=== PATIENT | male | born 1995 | race American Indian/Alaskan Native ===

== ENCOUNTER 2020-11-27 11:00 | Emergency (ER) | payer OTHER ==
[2020-11-27] MEDS ORDERED: ONDANSETRON 4 MG ODT TAB PO ONE (12:18)
[2020-11-27] MEDS ORDERED: FAMOTIDINE 20 MG TAB PO ONE (12:18)
--- NOTE | 2020-11-27 12:19 | Emergency Department Report ---
<GARRICK AGUILERA - Last Filed: 11/27/20 14:02> ED Abdominal Pain HPI - General Chief Complaint: Abdominal Pain Stated Complaint: PRESSURE IN CHEST/PAIN IN LEFT ARM Time Seen by Provider: 11/27/20 11:55 Source: patient Mode of arrival: Ambulatory Limitations: No Limitations - History of Present Illness Initial Comments: 25-year-old male presents to the ER today with complaints of upper abdominal pain. Patient states that the pain started 2 weeks ago. He states that it was intermittent in nature but got worse yesterday. He states that the pain radiates into his bilateral flank area and sometimes into his chest. He desc ribes as a burning/pressure type pain. He states that today he felt nauseous and lightheaded when the pain started. He states that the pain seems to be worse when he eats. He denies any associated diarrhea, vomiting, UTI symptoms, shortness of breath, cough or any additional symptoms. He does admit that he drinks alcohol every other day. He states that his alcohol intake ranges from 1-2 beers to 1 to 2 glasses of liquor when he does drink. He states that he stopped drinking about 2 days ago when his pain was starting to get worse. He denies any past history of abdominal surgeries. MD Complaint: abdominal pain -: week(s) (2) - Related Data Previous Rx's Medication Instructions Recorded Last Taken Type Docusate Sodium [Colace] 100 mg PO BID PRN #60 capsule 11/27/20 Unknown Rx Famotidine [Pepcid] 40 mg PO QHS #30 tablet 11/27/20 Unknown Rx Ondansetron [Zofran Odt] 4 mg PO Q8HR PRN #12 tab.rapdis 11/27/20 Unknown Rx Allergies Allergy/AdvReac Type Severity Reaction Status Date / Time No Known Allergies Allergy Unverified 11/27/20 11:09 ED Review of Systems Comment: All other systems reviewed and negative Constitutional: denies: chills, fever Eyes: denies: eye pain, eye discharge, vision change ENT: denies: ear pain, throat pain Respiratory: denies: cough, shortness of breath, SOB with exertion, SOB at rest, wheezing Cardiovascular: denies: chest pain, palpitations, dyspnea on exertion, edema, syncope, paroxysmal nocturnal dyspnea Gastrointestinal: abdominal pain, nausea. denies: vomiting, diarrhea, constipation, hematemesis, melena, hematochezia Genitourinary: denies: urgency, dysuria, frequency, hematuria, discharge, testicular pain, testicular mass Musculoskeletal: denies: back pain, joint swelling, arthralgia Skin: denies: rash, lesions, change in color, change in hair/nails, pruritus Neurological: denies: headache, weakness, numbness, paresthesias, confusion, abnormal gait, vertigo Psychiatric: as per HPI. denies: anxiety, depression, auditory hallucinations, visual hallucinations, homicidal thoughts, suicidal thoughts Hematological/Lymphatic: denies: easy bleeding, easy bruising ED Past Medical Hx - Past Medical History Previous Medical History?: No - Surgical History Past Surgical History?: No - Social History Smoking Status: Never Smoker Substance Use Type: Alcohol - Medications Home Medications: Home Medications Medication Instructions Recorded Confirmed Last Taken Type Docusate Sodium [Colace] 100 mg PO BID PRN #60 capsule 11/27/20 Unknown Rx Famotidine [Pepcid] 40 mg PO QHS #30 tablet 11/27/20 Unknown Rx Ondansetron [Zofran Odt] 4 mg PO Q8HR PRN #12 tab.rapdis 11/27/20 Unknown Rx ED Physical Exam - General Limitations: No Limitations General appearance: alert, in no apparent distress - Head Head exam: Present: atraumatic, normocephalic, normal inspection - Eye Eye exam: Present: normal appearance, PERRL, EOMI Pupils: Present: normal accommodation - ENT ENT exam: Present: normal exam, mucous membranes moist - Neck Neck exam: Present: normal inspection, full ROM - Respiratory Respiratory exam: Present: normal lung sounds bilaterally. Absent: respiratory distress, wheezes, rales - Cardiovascular Cardiovascular Exam: Present: regular rate, normal rhythm, normal heart sounds - GI/Abdominal GI/Abdominal exam: Present: soft, tenderness (Mild epigastric tenderness without guarding or rebound.). Absent: distended, guarding, rebound, rigid - Neurological Exam Neurological exam: Present: alert, oriented X3, CN II-XII intact, normal gait - Psychiatric Psychiatric exam: Present: normal affect, normal mood - Skin Skin exam: Present: intact ED Medical Decision Making - Lab Data Result diagrams: 11/27/20 12:21 11/27/20 12:21 - EKG Data EKG shows normal: sinus rhythm Rate: normal - EKG Data Interpretation: normal EKG (74) - Radiology Data Radiology results: report reviewed Patient: ELISABETH PATEL MR #: [id number] : 03/13/1975 Acct:[id number] Age/Sex: 45 / M ADM Date: 11/27/20 Loc: ED Attending Dr: Ordering Physician: GARRICK AGUILERA Date of Service: 11/27/20 Procedure(s): CT abdomen pelvis w con Accession Number(s): [id number] cc: GARRICK AGUILERA CT ABDOMEN AND PELVIS WITH CONTRAST INDICATION / CLINICAL INFORMATION: Epigastric pain with nausea and vomiting. TECHNIQUE: Axial CT images were obtained through the abdomen and pelvis after the patient's Isovue- 300, [address] scans at this location are performed using CT dose reduction for ALARA by means of automated exposure control. COMPARISON: 02/02/2020 FINDINGS: LOWER CHEST: No significant abnormality. LIVER: No significant abnormality. GALLBLADDER: 20 absent. BILE DUCTS: No significant abnormality. PANCREAS: No significant abnormality. SPLEEN: No significant abnormality. ADRENALS: No significant abnormality. RIGHT KIDNEY / URETER: No significant abnormality. LEFT KIDNEY / URETER: Subcentimeter cysts. STOMACH / SMALL BOWEL: No significant abnormality. COLON: No significant abnormality. APPENDIX: Nonvisualized. PERITONEUM: No free fluid. No free air. No fluid collection. LYMPH NODES: No significant adenopathy. VASCULAR STRUCTURES: No significant abnormality. URINARY BLADDER: No significant abnormality. REPRODUCTIVE ORGANS: No significant abnormality. ADDITIONAL FINDINGS: None. SKELETAL SYSTEM: No significant abnormality. IMPRESSION: Negative for obstruction or localized inflammation. Signer Name: Porter Hastings MD Signed: 11/27/2020 12:24 PM Workstation Name: [id number] Transcribed By: ES Dictated By: Porter Hastings MD Electronically Authenticated By: Porter Hastings MD Signed Date/Time: 11/27/20 1224 DD/ 1220 TD/TT: - Medical Decision Making 1402 ; patient resting comfortably sitting up in the bed on his phone. He does not appear to be in any acute distress. He denies any abdominal pain at this time. He is not toxic or ill-appearing. He appears hydrated. Repeat abdominal exam shows soft nontender abdomen. Labs and x-ray reviewed. Labs unremarkable. X-ray shows constipation but otherwise unremarkable. Discussed imaging results and lab results with patient. Discussed suspected diagnosis and treatment plan with patient. At this time there is no indication for additional testing, admission, or specialist consult. Patient will be given referral to primary care doctor as well as GI specialist and also discussed with him trying to decrease his alcohol intake. Patient expressed understanding of instructions and agree with plan. Patient stable at time of discharge. ED Disposition Clinical Impression: Upper abdominal pain, Gastritis, Constipation Disposition: DC- TO HOME OR SELFCARE Is pt being admited?: No Does the pt Need Aspirin: No Condition: Stable Instructions: Gastritis, Adult, [id number], Peptic Ulcer, [id number], Constipation, Adult, Abdominal Pain, Adult, [id number]-[id number], Peptic Ulcer Eating Plan Additional Instructions: I recommend that you take the Colace, the Pepcid and the Zofran as prescribed. It is important that you try to decrease your alcohol intake. Also recommend trying to stay away from spicy, fatty, greasy, acidic foods as these can also cause similar symptoms that she been having. Follow-up with the primary care doctor listed in your discharge instructions or the GI specialist if your symptoms persist. Return to the ER if your symptoms changes or worsens in any way. 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) Forms: Work/School Release Form(ED) Time of Disposition: 13:50 <WAYNE DELUNA - Last Filed: 11/28/20 08:53> ED Review of Systems ROS: Stated complaint: PRESSURE IN CHEST/PAIN IN LEFT ARM Other details as noted in HPI ED Course Vital Signs 11/27/20 11/27/20 11:11 14:22 Temperature 98.4 F Pulse Rate 77 69 Respiratory 20 17 Rate Blood Pressure 122/73 Blood Pressure 123/74 [Right] O2 Sat by Pulse 96 99 Oximetry ED Medical Decision Making - Lab Data Result diagrams: 11/27/20 12:21 11/27/20 12:21 - Medical Decision Making I personally spoke to the patient over the phone on the morning of 11/28/2020. 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 No nausea/vomiting. I spoke with him about his alcohol consumption and he says he typically drinks two shots of liquor and one beer per day but over the past 3 days has not been drinking any liquor. I underscored the fact that he should refrain from drinking any alcohol until his symptoms have entirely resolved for several days, and even then it should be as sparingly as possible. I told him that should his symptoms continue he should either return to the emergency room or his primary care doctor to check labs specifically to look for signs of pancreatitis. The patient expressed understanding and says he will do so if his symptoms do not remain resolved. Critical care attestation.: If time is entered above; I have spent that time in minutes in the direct care of this critically ill patient, excluding procedure time.
[2020-11-27 12:45] LABS: Basophils % (Auto) 0.7 % (0.0-1.8); Eosinophils # (Auto) 0.2 K/mm3 (0.0-0.4); Hematocrit 45.2 % (35.5-45.6); Hemoglobin 15.4 gm/dl (11.8-15.2); Lymphocytes # (Auto) 1.1 K/mm3 (1.2-5.4); Lymphocytes % (Auto) 26.9 % (13.4-35.0); Mean Corpuscular HGB Conc 34 % (32-34); Mean Corpuscular Volume 86 fl (84-94); Monocytes # (Auto) 0.6 K/mm3 (0.0-0.8); Monocytes % (Auto) 14.8 % (0.0-7.3); Platelet Count 224 K/mm3 (140-440); Red Blood Count 5.26 M/mm3 (3.65-5.03); Red Cell Distribution Width 14.1 % (13.2-15.2)
[2020-11-27 12:57] LABS: Alanine Aminotransferase 34 units/L (7-56); Albumin 4.5 g/dL (3.9-5); BUN/Creatinine Ratio 13; Blood Urea Nitrogen 12 mg/dL (9-20); Calcium 9.6 mg/dL (8.4-10.2); Hemolysis Index 6
[2020-11-27 13:04] LABS: Bilirubin,Urine NEG (Negative); Blood,Urine NEG (Negative); Color,Urine Yellow (Yellow); Protein,Urine <15 mg/dL mg/dL (Negative); Urobilinogen,Urine < 2.0 mg/dL (<2.0)
[2020-11-27 13:09] LABS: Bilirubin,Direct < 0.2 mg/dL (0-0.2)
--- NOTE | 2020-11-27 13:13 | XRay Report ---
CHEST AND ABDOMINAL SERIES HISTORY: Upper abdominal pain. Chest 1 view: Heart size is normal. The lungs are clear. Two-view abdomen: Gas is scattered throughout the abdomen in a nonobstructive fashion. Negative for f ree air or suspicious calcification. Colonic stool is moderate. Signer Name: Porter Hastings MD Signed: 11/27/2020 1:09 PM Workstation Name: [id number]
[2020-11-27 14:23] VITALS: BP 123/74
--- NOTE | 2020-12-02 10:51 | Electrocardiograph Report ---
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
== END 2020-11-27 14:23 | disposition home or self-care (01) ==
LOC: ED 11:00
DX: K29.70 Gastritis, unspecified, without bleeding (principal); K59.00 Constipation, unspecified; R10.13 Epigastric pain; Z72.89 Other problems related to lifestyle; Z79.899 Other long term (current) drug therapy
CPT/HCPCS: 36415; 74022; 80048; 80076; 81001; 85025; 93005; 99284; Q0162